=== PATIENT | female | born 2000 | race Caucasian/White ===

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

== ENCOUNTER 2020-04-07 20:54 | Emergency (ER) | payer BC ==
--- NOTE | 2020-04-07 21:06 | EDM.PDOC ---
ED HPI GENERAL MEDICAL PROBLEM - General Chief Complaint: General Stated Complaint: MEDICAL CLEARANCE Time Seen by Provider: 04/07/20 21:06 Source of Information: Reports: Patient History Limitations: Reports: No Limitations - History of Present Illness INITIAL COMMENTS - FREE TEXT/NARRATIVE: HISTORY AND PHYSICAL: History of present illness: Patient is a 20-year-old female who presents to the emergency room with law enforcement for medical clearance exam. Patient states on 04/04/2020 she tested positive for COVID-19 in [place]. Law enforcement would like her evaluated due to her statement of COVID-19. She states she has a mild headache, has had for the past 4 to 5 days. Does not describe this as the worst headache of her life. She denies any fever, chills, neck pain/stiffness, change in vision, syncope or near syncope. Denies any chest pain, back pain, shortness of breath or cough. Denies any abdominal pain, nausea, vomiting, diarrhea, constipation or dysuria. Has not noted any blood in urine or stool. Patient has been eating and drinking appropriately. Review of systems: As per history of present illness and below otherwise all systems reviewed and negative. Past medical history: As per history of present illness and as reviewed below otherwise noncontributory. Surgical history: As per history of present illness and as reviewed below otherwise noncontributory. Social history: See social history for further information Family history: As per history of present illness and as reviewed below otherwise noncontributory. Physical exam: General: Well developed and well nourished 20 year old female. Alert and orientated x 3. Nontoxic in appearance and in no acute distress. Vital signs are stable and have been reviewed by me. Nursing notes were reviewed. Accompanied by law enforcement. HEENT: Atraumatic, normocephalic, pupils equal and reactive bilaterally, negative for conjunctival pallor or scleral icterus, mucous membranes moist, trachea midline. No drooling or trismus noted. No meningeal signs. No hot potato voice noted. Lungs: Clear to auscultation, breath sounds equal bilaterally, chest nontender. Normal work of breathing, no accessory muscles used. Heart: S1S2, regular rate and rhythm without overt murmur Abdomen: Soft, nondistended, nontender. Skin: Intact, warm, dry. No lesions or rashes noted. Hematologic: No petechiae or purpra. Mucosa appropriate color and normal nail bed color and refill. Extremities: Atraumatic, moves all extremities per self without difficulty or deficits, negative for cords or calf pain. Neurovascular unremarkable. Neuro: Awake, alert, oriented. Cranial nerves II through XII unremarkable. Cerebellum unremarkable. Motor and sensory unremarkable throughout. Exam nonfocal. Psychiatric: Mood and affect are appropriate. Normal thought process. Answering questions appropriately. Notes: The patient does have confirmation that she tested positive for COVID-19 on her phone through a state confirmation email. Her significant other who lives with her and is also being evaluated in the emergency room was swabbed here as he did not have the confirmation email, he tested positive. I will avoid duplicate testing and have long enforcement treat her as positive COVID-19. Exam and vital signs are within normal limits. I have talked with the patient about today's findings, in addition to providing specific details for plan of care. The patient is stable for discharge, counseling was provided and we discussed in great detail signs and symptoms that would prompt them to return to the Emergency Department. Medication, follow up and supportive care measures were reviewed and discussed. Voices understanding and is agreeable to plan of care. Denies any further questions or concerns at this time. Diagnostics: None Therapeutics: None Prescription: None Impression: COVID-19 Plan: 1. Your COVID-19 screening is positive. That means you do have the coronavirus and you are considered contagious. Your vital signs and oxygen saturation are well enough that you were able to monitor your symptoms at home. Continue to monitor for trouble breathing, new confusion or inability to arouse, bluish lips or face or any of the other symptoms we discussed -if this occurs please return to the emergency room. 2. Please self quarantine over the next 10 days. Inform any persons that you have been in contact with since you started becoming symptomatic that you have tested positive; they should be made aware and take the appropriate steps as needed. 3. You can take NyQuil during the evening to help get a restful night sleep. May alternate Tylenol and ibuprofen as needed for pain and fever management. 4. The [facility] department will be calling you and following up with you. The [place] COVID 19 Hotline phone number , They are open Saturday - Saturday 7am - 7pm. Follow up with your primary care provider for re-evaluation and re-testing after the 10 day quarantine and discuss when you should be seen. Definitive disposition and diagnosis as appropriate pending reevaluation and review of above. Chest Pain Score (Numeric/FACES): 5 - Related Data Allergies Allergy/AdvReac Type Severity Reaction Status Date / Time No Known Allergies Allergy Verified 04/07/20 21:09 Home Meds: Home Meds . [No Known Home Meds] 04/07/20 [History] Past Medical History - Past Health History Medical/Surgical History: Denies Medical/Surgical History HEENT History: Reports: None Cardiovascular History: Reports: None Respiratory History: Reports: None Gastrointestinal History: Reports: None Genitourinary History: Reports: None [employer] History: Reports: Musculoskeletal History: Reports: None Neurological History: Reports: None Psychiatric History: Reports: None Endocrine/Metabolic History: Reports: None Hematologic History: Reports: None Immunologic History: Reports: None Oncologic (Cancer) History: Reports: None Dermatologic History: Reports: None - Infectious Disease History Infectious Disease History: Reports: None - Past Surgical History Head Surgeries/Procedures: Reports: None HEENT Surgical History: Reports: None Cardiovascular Surgical History: Reports: None Respiratory Surgical History: Reports: None GI Surgical History: Reports: None Female Surgical History: Reports: None Male Surgical History: Reports: None Endocrine Surgical History: Reports: None Neurological Surgical History: Reports: None Musculoskeletal Surgical History: Reports: None Oncologic Surgical History: Reports: None Dermatological Surgical History: Reports: None - Past Imaging History Past Imaging History: Reports: None Social & Family History - Family History Family Medical History: No Pertinent Family History ED ROS GENERAL - Review of Systems Review Of Systems: Comprehensive ROS is negative, except as noted in HPI. ED EXAM, GENERAL - Physical Exam Exam: See Below (See dictation) Course - Vital Signs Last Recorded V/S: Last Vital Signs Temp 97.1 F 04/07/20 21:05 Pulse 85 04/07/20 21:05 Resp 16 04/07/20 21:05 BP 129/72 04/07/20 21:05 Pulse Ox 99 04/07/20 21:05 Departure - Departure Time of Disposition: 21:14 Disposition: Home, Self-Care 01 Clinical Impression: Encounter for medical screening examination, COVID-19 - Discharge Information Instructions: COVID-19 Frequently Asked Questions Referrals: Cain Banuelos MD [Primary Care Provider] - Forms: ED Department Discharge Additional Instructions: The following information is given to patients seen in the emergency department who are being discharged to home. This information is to outline your options for follow-up care. We provide all patients seen in our emergency department with a follow-up referral. The need for follow-up, as well as the timing and circumstances, are variable depending upon the specifics of your emergency department visit. If you don't have a primary care physician on staff, we will provide you with a referral. We always advise you to contact your personal physician following an emergency department visit to inform them of the circumstance of the visit and for follow-up with them and/or the need for any referrals to a consulting specialist. The emergency department will also refer you to a specialist when appropriate. This referral assures that you have the opportunity for follow-up care with a specialist. All of these measure are taken in an effort to provide you with optimal care, which includes your follow-up. Under all circumstances we always encourage you to contact your private physician who remains a resource for coordinating your care. When calling for follow-up care, please make the office aware that this follow-up is from your recent emergency room visit. If for any reason you are refused follow-up, please contact the [facility] Emergency Department at and asked to speak to the emergency department charge nurse. [facility] [address] [place] [id number] [address] [address] for choosing the [facility] emergency department in [place] for your medical needs today. It was a pleasure caring for you. Today you were seen in the emergency department for encounter for medical screening and COVID-19 testing. 1. Your COVID-19 is considered contagious. Your vital signs and oxygen saturation are well enough that you were able to monitor your symptoms at home. Continue to monitor for trouble breathing, new confusion or inability to arouse, bluish lips or face or any of the other symptoms we discussed -if this occurs please return to the emergency room. 2. Please self quarantine over the next 10 days. Inform any persons that you have been in contact with since you started becoming symptomatic that you have tested positive; they should be made aware and take the appropriate steps as needed. 3. You can take NyQuil during the evening to help get a restful night sleep. May alternate Tylenol and ibuprofen as needed for pain and fever management. 4. The [facility] department will be calling you and following up with you. The [place] Hotline phone number , They are open Saturday - Saturday 7am - 7pm. Follow up with your primary care provider for re-evaluation and re-testing after the 10 day quarantine and discuss when you should be seen. Sepsis Event Note (ED) - Focused Exam Vital Signs: Vital Signs Temp Pulse Resp BP Pulse Ox 04/07/20 21:05 97.1 F 85 16 129/72 99
== END 2020-04-07 21:35 | disposition home or self-care (01) ==
LOC: MW.ED 20:54
DX: U07.1 COVID-19 (principal)
CPT/HCPCS: 99282; 99283

== ENCOUNTER 2021-02-14 05:16 | Inpatient (IN) | payer BC ==
[2021-02-14] MEDS ORDERED: Sodium Chloride 0.9% 10 ML SDV IV PRN (05:27)
[2021-02-14] MEDS ORDERED: Citric Acid/Sodium Citrate Solution 30 ML Cup PO ONE (05:27)
[2021-02-14] MEDS ORDERED: Sodium Chloride 0.9% 10 ML Syringe FLUSH PRN (05:27)
[2021-02-14] MEDS ORDERED: Sodium Chloride 0.9% 2.5 ML Syringe FLUSH PRN (05:27)
[2021-02-14] MEDS ORDERED: Oxytocin/0.9 % Sodium Chloride 30 UNIT/500 ML BAG IV SCH (05:30)
[2021-02-14] MEDS: Lactated Ringers 1,000 ML IV SCH ×5 (06:00→18:42)
--- NOTE | 2021-02-14 07:43 | PCM.PREANE ---
Preanesthetic Assessment - Anesthesia/Transfusion/Family Hx Anesthesia History: Prior Anesthesia Without Reaction Family History of Anesthesia Reaction: No Transfusion History: No Prior Transfusion(s) - Review of Systems General: No Symptoms Pulmonary: No Symptoms Cardiovascular: No Symptoms Gastrointestinal: No Symptoms Neurological: No Symptoms Other: Reports: None (Pt denies pathology to all questions. ) - Physical Assessment NPO Status Date: 02/14/21 NPO Status Time: 00:00 Height: 1.6 m Weight: 85.729 kg ASA Class: 2 Mental Status: Alert & Oriented x3 Airway Class: Mallampati = 2 Dentition: Reports: Normal Dentition Thyro-Mental Finger Breadths: 3 Mouth Opening Finger Breadths: 3 ROM/Head Extension: Full Lungs: Clear to Auscultation, Normal Respiratory Effort Cardiovascular: Regular Rate, Regular Rhythm - Lab Values: Laboratory Last Values WBC 7.98 K/uL (4.0-11.0) 02/14/21 06:00 RBC 4.40 M/uL (4.30-5.90) 02/14/21 06:00 Hgb 13.1 g/dL (12.0-16.0) 02/14/21 06:00 Hct 38.2 % (36.0-46.0) 02/14/21 06:00 MCV 86.8 fL (80.0-98.0) 02/14/21 06:00 MCH 29.8 pg (27.0-32.0) 02/14/21 06:00 MCHC 34.3 g/dL (31.0-37.0) 02/14/21 06:00 RDW Std Deviation 38.1 fl (28.0-62.0) 02/14/21 06:00 RDW Coeff of Bon[place] 12 % (11.0-15.0) 02/14/21 06:00 Plt Count 183 K/uL (150-400) 02/14/21 06:00 MPV 11.40 fL (7.40-12.00) 02/14/21 06:00 Blood Type O POSITIVE 02/14/21 06:00 Antibody Screen NEGATIVE 02/14/21 06:00 - Allergies Allergies/Adverse Reactions: Allergies Allergy/AdvReac Type Severity Reaction Status Date / Time No Known Allergies Allergy Verified 02/09/21 08:07 - Blood Blood Available: Yes Product(s) Available: PRBC (Type and screen) - Anesthesia Plan Pre-Op Medication Ordered: None - Acknowledgements Anesthesia Type Planned: Spinal (with GETA backup) Pt an Appropriate Candidate for the Planned Anesthesia: Yes Alternatives and Risks of Anesthesia Discussed w Pt/Guardian: Yes Pt/Guardian Understands and Agrees with Anesthesia Plan: Yes PreAnesthesia Questionnaire - Past Health History Medical/Surgical History: Denies Medical/Surgical History HEENT History: Reports: None Cardiovascular History: Reports: None Respiratory History: Reports: None Gastrointestinal History: Reports: None Genitourinary History: Reports: None [employer]ENCE History: Reports: Musculoskeletal History: Reports: None Neurological History: Reports: None Psychiatric History: Reports: None Endocrine/Metabolic History: Reports: None Hematologic History: Reports: None Immunologic History: Reports: None Oncologic (Cancer) History: Reports: None Dermatologic History: Reports: None - Infectious Disease History Infectious Disease History: Reports: Chicken Pox, Novel Coronavirus - Past Surgical History Head Surgeries/Procedures: Reports: None HEENT Surgical History: Reports: None Cardiovascular Surgical History: Reports: None Respiratory Surgical History: Reports: None GI Surgical History: Reports: None Female Surgical History: Reports: None Endocrine Surgical History: Reports: None Neurological Surgical History: Reports: None Musculoskeletal Surgical History: Reports: None Oncologic Surgical History: Reports: None Dermatological Surgical History: Reports: None - Past Imaging History Past Imaging History: Reports: None - SUBSTANCE USE Tobacco Use Status *Q: Never Tobacco User - HOME MEDS Home Medications: Home Meds Pnv No.95/Ferrous Fum/Folic AC [ Vitamin Tablet] 1 tab PO DAILY 02/09/21 [History] cephALEXin [Keflex] 1 tab PO BID 02/09/21 [History] - CURRENT (IN HOUSE) MEDS Current Meds: Current Medications Oxytocin/Sodium Chloride (Oxytocin 30 Unit In Ns 0.9% 500 Ml Premix) 30 unit in 500 mls @ 250 mls/hr IV TITRATE SAUL Lactated Ringer's (Ringers, Lactated) 1,000 mls @ 500 mls/hr IV BOLUS SAUL Last Admin: 02/14/21 06:38 Dose: 999 mls/hr Documented by: Sodium Chloride (Sodium Chloride 0.9% 10 Ml Syringe) 10 ml FLUSH ASDIRECTED PRN PRN Reason: Keep Vein Open Sodium Chloride (Sodium Chloride 0.9% 2.5 Ml Syringe) 2.5 ml FLUSH ASDIRECTED PRN PRN Reason: Keep Vein Open Sodium Chloride (Sodium Chloride 0.9% 10 Ml Sdv) 10 ml IV ASDIRECTED PRN PRN Reason: IV Use Discontinued Medications Citric Acid/Sodium Citrate (Citric Acid/Sodium Citrate Solution 30 Ml Cup) 30 ml PO ONETIME ONE Stop: 02/14/21 05:28
[2021-02-14] MEDS ORDERED: Morphine PF 10 MG/10 ML SDV ONE (08:03)
[2021-02-14] MEDS ORDERED: Glycopyrrolate 0.2 MG/ML SDV ONE (09:37)
[2021-02-14] MEDS ORDERED: ePHEDrine 50 MG/ML SDV ONE (09:37)
[2021-02-14] MEDS ORDERED: Ondansetron 4 MG/2 ML SDV ONE (09:37)
[2021-02-14] MEDS ORDERED: Oxytocin 10 Units/1 ML SDV ONE (09:37)
[2021-02-14] MEDS ORDERED: Ketorolac 30 MG/ML SDV ONE (09:39)
[2021-02-14] MEDS ORDERED: Misoprostol 200 MCG Tab RECTAL PRN (09:48)
[2021-02-14] MEDS ORDERED: Acetaminophen/oxyCODONE 325-5 MG Tab PO PRN ×2 (09:48)
[2021-02-14] MEDS ORDERED: diphenhydrAMINE 50 MG/ML SDV IVPUSH PRN (09:48)
[2021-02-14] MEDS ORDERED: Ondansetron 4 MG/2 ML SDV IVPUSH PRN (09:48)
[2021-02-14] MEDS ORDERED: Oxytocin 10 Units/1 ML SDV IM PRN (09:48)
[2021-02-14] MEDS ORDERED: Tranexamic Acid 1,000 MG in Sodium Chloride 0.9% 100 ML IV PRN (09:48)
[2021-02-14] MEDS ORDERED: Bisacodyl 10 MG Supp RECTAL PRN (09:48)
[2021-02-14] MEDS ORDERED: Methylergonovine 0.2 MG/1 ML Amp IM PRN (09:48)
[2021-02-14] MEDS ORDERED: Lanolin 100% Cream 7 GM Tube TOP PRN (09:48)
--- NOTE | 2021-02-14 10:07 | PCM.POSTAN ---
POST ANESTHESIA ASSESSMENT - MENTAL STATUS Mental Status: Alert, Oriented - RESPIRATORY Respiratory Status: Respiratory Rate WNL, Airway Patent, O2 Saturation Stable - CARDIOVASCULAR CV Status: Pulse Rate WNL, Blood Pressure Stable - GASTROINTESTINAL GI Status: No Symptoms - POST OP HYDRATION Hydration Status: Adequate & Stable
--- NOTE | 2021-02-14 10:07 | PCM48HPAN ---
Post Anesthesia Note - EVALUATION WITHIN 48HRS OF ANESTHETIC Vital Signs in Normal Range: Yes Patient Participated in Evaluation: Yes Respiratory Function Stable: Yes Airway Patent: Yes Cardiovascular Function Stable: Yes Hydration Status Stable: Yes Pain Control Satisfactory: Yes Nausea and Vomiting Control Satisfactory: Yes Mental Status Recovered: Yes - COMMENTS/OBSERVATIONS Free Text/Narrative:: VSS and patient denies pain.
[2021-02-14] MEDS: Ketorolac 30 MG/ML SDV IVPUSH SCH ×3 (11:01→22:01)
[2021-02-14] MEDS ORDERED: Famotidine 20 MG/2 ML SDV IVPUSH ONE (11:03)
[2021-02-14] MEDS ORDERED: Dexamethasone 4 MG/ML SDV IVPUSH ONE (11:19)
[2021-02-14] MEDS ORDERED: Metoclopramide 10 MG/2 ML SDV IVPUSH ONE (11:21)
[2021-02-14] MEDS ORDERED: Acetaminophen 1,000 MG in Premix Bag 1 BAG IV ONE (14:30)
[2021-02-14] MEDS ORDERED: Scopolamine 1.5 MG Transdermal Patch TRDERM PRN (15:25)
[2021-02-14] MEDS ORDERED: Docusate Sodium 100 MG Cap PO SCH (21:00)
--- NOTE | 2021-02-15 02:24 | OR ---
SURGEON: Williams Kerns MD DATE OF PROCEDURE: 02/14/2021 INDICATION FOR PROCEDURE: A 20-year-old, G2, P1-0-0-1, at 39 weeks and 1 day, presenting for a scheduled repeat . The patient has a history of 1 prior due to arrest of descent. She was counseled regarding the risks and benefits of trial of labor after section and she declined, desiring to proceed with repeat C- section. She had otherwise uncomplicated . GBS was negative. PREOPERATIVE DIAGNOSES: 1. Escobar intrauterine at 39 weeks and 1 day. 2. Previous section. POSTOPERATIVE DIAGNOSES: 1. Escobar intrauterine at 39 weeks and 1 day. 2. Previous section. PROCEDURE PERFORMED: Repeat low-transverse section. RESIDENTIAL CARE FACILITY MANAGER: ANDREAS Mullen ANESTHESIA: Spinal. FINDINGS: Normal-appearing uterus. Small amount of intraperitoneal adhesions. Male fetus, score of 8 and 9. weight 3410g. Nuchal cord x1. ESTIMATED BLOOD LOSS: 800 mL. DESCRIPTION OF PROCEDURE: The procedure was discussed with the patient. The risks include bleeding, infection, DVTs, injury to surrounding organs including bladder, bowel, ureter. The patient expressed understanding. Consent was signed. The patient was brought to the operating room. Spinal anesthesia was performed. Rogel catheter was placed. The abdomen was prepped with chlorhexidine in sterile fashion and draped and tested for analgesia. Spinal with adequate. A Pfannenstiel incision was made at the site of the previous scar with a scalpel and dissected down to fascia. Sites of bleeding were cauterized. The fascia was cleared of subcutaneous tissue, then incised in the midline with the scalpel. It was extended bilaterally with curved Sanchez scissors. Neptali clamps were placed on the superior fascial edge. The rectus muscles were by blunt dissection and using Sanchez scissors. The same process was repeated for the inferior fascial edge. The rectus muscles were at the midline, then stretched bluntly. There were some adhesions from the prior surgery below the rectus muscle, which was carefully palpated and from the rectus muscles, then the peritoneum was entered. It was then stretched bluntly. The Dalton-O retractor was placed in the peritoneal cavity. The bladder was noted to be away from the lower uterine segment. The uterus was incised transversely at the lower uterine segment and extended bluntly. Clear amniotic fluid was noted. The 's head was brought to the hysterotomy and delivered atraumatically with fundal pressure. The shoulder and body were delivered without difficulty. There was a nuchal cord that was reduced after delivery. The nose and mouth were suctioned. The baby was pink, crying immediately after delivery. The umbilical cord was clamped and cut after about 60 seconds and no longer pulsating. The baby was handed over to nursery staff. The cord blood was obtained. Placenta was delivered with gentle traction on the umbilical cord. It was examined and noted to be intact with 3-vessel cord. The endometrial cavity was wiped with a clean lap to remove all remaining membranes. Allis clamps were used to grasp the angles of the incision. The uterine incision was closed in 2 layers, the 1st layer with 0 Monocryl in running locking fashion. The 2nd layer vertically imbricated using 0 Vicryl. There was small amount of bleeding near the midline, and a [id number] was placed with good hemostasis. Cautery was also used on small bleeding edges. The pericolic gutters were cleared of any clots. Irrigation was performed and the incision was checked again for hemostasis. The Dalton-O retractor was then removed from the peritoneal cavity. The peritoneum was grasped by hemostats and reapproximated in the midline using 2-0 Vicryl in a running fashion. The rectus muscles were also brought together with a mattress stitch. The rectus muscles were carefully examined and some areas had a small amount of bleeding, and cautery was used for hemostasis. The fascia was then closed using 0-Vicryl suture in running fashion. The subcutaneous tissue was irrigated and bleeding areas cauterized. The subcutaneous layer was closed with 2-0 plain suture in running fashion. The skin was closed in subcuticular fashion using 3-0 Monocryl on a Amauri needle. Telfa and ABD dressings were placed over the incision. The patient did well during the procedure and was transferred to recovery room. JORGE FERRER /[id number]
[2021-02-15] MEDS: Ketorolac 30 MG/ML SDV IVPUSH SCH ×3 (03:46→21:27)
[2021-02-15] MEDS ORDERED: Lactated Ringers 500 ML IV SCH ×2 (05:30→06:15)
[2021-02-15] MEDS ORDERED: Misoprostol 200 MCG Tab RECTAL PRN (07:10)
[2021-02-15] MEDS ORDERED: Oxytocin 10 Units/1 ML SDV IM PRN (07:10)
[2021-02-15] MEDS ORDERED: Ondansetron 4 MG/2 ML SDV IVPUSH PRN (07:10)
[2021-02-15] MEDS ORDERED: Tranexamic Acid 1,000 MG in Sodium Chloride 0.9% 100 ML IV PRN (07:10)
[2021-02-15] MEDS ORDERED: Methylergonovine 0.2 MG/1 ML Amp IM PRN (07:10)
[2021-02-15] MEDS ORDERED: Lanolin 100% Cream 7 GM Tube TOP PRN (07:10)
[2021-02-15] MEDS ORDERED: diphenhydrAMINE 50 MG/ML SDV IVPUSH PRN (07:10)
[2021-02-15] MEDS ORDERED: Bisacodyl 10 MG Supp RECTAL PRN (07:10)
[2021-02-15] MEDS ORDERED: Acetaminophen/oxyCODONE 325-5 MG Tab PO PRN (07:10)
[2021-02-15] MEDS ORDERED: Lactated Ringers 1,000 ML IV SCH (07:15)
--- NOTE | 2021-02-15 07:32 | PCM.PNPP ---
- General Info Date of Service: 02/15/21 Functional Status: Reports: Pain Controlled, Tolerating Diet, Other (BP 80s/40s last night, denies feeling dizzy. Improved this AM after IV fluid bolus. Will try ambulation this morning. Rogel removed this AM. Bleeding light.) - Review of Systems General: Reports: No Symptoms HEENT: Reports: No Symptoms Pulmonary: Reports: No Symptoms Cardiovascular: Reports: No Symptoms Gastrointestinal: Reports: No Symptoms Genitourinary: Reports: No Symptoms Musculoskeletal: Reports: No Symptoms Skin: Reports: No Symptoms Neurological: Reports: No Symptoms Psychiatric: Reports: No Symptoms - Patient Data Vital Signs - Most Recent: Last Vital Signs Temp 36.1 C 02/15/21 04:00 Pulse 70 02/15/21 06:00 Resp 15 02/15/21 05:00 BP 88/34 L 02/15/21 06:00 Pulse Ox 96 02/15/21 05:00 Weight - Most Recent: 189 lb I&O - Last 24 Hours: Intake & Output 02/14/21 02/15/21 02/15/21 22:59 06:59 14:59 Intake Total 2915 Output Total 450 Balance -450 2915 Lab Results - Last 24 Hours: Laboratory Results - last 24 hr 02/14/21 02/15/21 Range/Units 15:40 04:25 Hgb 8.8 L (12.0-16.0) g/dL Hct 26.0 L (36.0-46.0) % POC Glucose 109 H (70-99) mg/dL Med Orders - Current: Current Medications Bisacodyl (Bisacodyl 10 Mg Supp) 10 mg RECTAL ONETIME PRN PRN Reason: Constipation Diphenhydramine HCl (Diphenhydramine 50 Mg/Ml Sdv) 25 mg IVPUSH Q6H PRN PRN Reason: Itching or Nausea Docusate Sodium (Docusate Sodium 100 Mg Cap) 100 mg PO BID SAUL Emollient Ointment (Lanolin 100% Cream 7 Gm Tube) 0 gm TOP ASDIRECTED PRN PRN Reason: Sore Nipples Lactated Ringer's (Ringers, Lactated) 500 mls @ 999 mls/hr IV .BOLUS [facility] Last Infusion: 02/15/21 05:36 Dose: Infused Documented by: Lactated Ringer's (Ringers, Lactated) 500 mls @ 999 mls/hr IV .BOLUS [facility] Last Infusion: 02/15/21 06:36 Dose: Infused Documented by: Lactated Ringer's (Ringers, Lactated) 1,000 mls @ 125 mls/hr IV ASDIRECTED SAUL Tranexamic Acid 1,000 mg/ (Sodium Chloride) 110 mls @ 660 mls/hr IV ONETIME PRN PRN Reason: Bleeding Ibuprofen (Ibuprofen 800 Mg Tab) 800 mg PO Q8H PRN PRN Reason: Cramping Influenza Virus Vaccine (Flu Vacc [id number](6mos Up)/Pf 60 Mcg/0.5 Ml Syringe) 60 mcg IM .ONCE ONE Stop: 02/17/21 08:01 Ketorolac Tromethamine (Ketorolac 30 Mg/Ml Sdv) 30 mg IVPUSH Q6H [facility] Stop: 02/16/21 10:01 Methylergonovine Maleate (Methylergonovine 0.2 Mg/1 Ml Amp) 0.2 mg IM ONETIME PRN PRN Reason: Excessive Vaginal Bleeding Misoprostol (Misoprostol 200 Mcg Tab) 1,000 mcg RECTAL ONETIME PRN PRN Reason: excessive bleeding Ondansetron HCl (Ondansetron 4 Mg/2 Ml Sdv) 4 mg IVPUSH Q4H PRN PRN Reason: Nausea/Vomiting Oxycodone/Acetaminophen (Acetaminophen/Oxycodone 325-5 Mg Tab) 1 tab PO Q4H PRN PRN Reason: Pain (severe 7-10) Oxycodone/Acetaminophen (Acetaminophen/Oxycodone 325-5 Mg Tab) 2 tab PO Q4H PRN PRN Reason: Pain (severe 7-10) Oxytocin (Oxytocin 10 Units/1 Ml Sdv) 10 unit IM ASDIRECTED PRN PRN Reason: Excessive Vaginal Bleeding Scopolamine (Scopolamine 1.5 Mg Transdermal Patch) 1.5 mg TRDERM Q72H PRN PRN Reason: Nausea/Vomiting Last Admin: 02/14/21 16:31 Dose: 1.5 mg Documented by: Sodium Chloride (Sodium Chloride 0.9% 10 Ml Syringe) 10 ml FLUSH ASDIRECTED PRN PRN Reason: Keep Vein Open Sodium Chloride (Sodium Chloride 0.9% 2.5 Ml Syringe) 2.5 ml FLUSH ASDIRECTED PRN PRN Reason: Keep Vein Open Sodium Chloride (Sodium Chloride 0.9% 10 Ml Sdv) 10 ml IV ASDIRECTED PRN PRN Reason: IV Use Discontinued Medications Bisacodyl (Bisacodyl 10 Mg Supp) 10 mg RECTAL ONETIME PRN PRN Reason: Constipation Citric Acid/Sodium Citrate (Citric Acid/Sodium Citrate Solution 30 Ml Cup) 30 ml PO ONETIME ONE Stop: 02/14/21 05:28 Last Admin: 02/15/21 00:03 Dose: Not Given Documented by: Dexamethasone (Dexamethasone 4 Mg/Ml Sdv) 4 mg IVPUSH ONETIME ONE Stop: 02/14/21 11:20 Last Admin: 02/14/21 12:00 Dose: 4 mg Documented by: Diphenhydramine HCl (Diphenhydramine 50 Mg/Ml Sdv) 25 mg IVPUSH Q6H PRN PRN Reason: Itching or Nausea Docusate Sodium (Docusate Sodium 100 Mg Cap) 100 mg PO BID [facility] Last Admin: 02/14/21 20:06 Dose: 100 mg Documented by: Emollient Ointment (Lanolin 100% Cream 7 Gm Tube) 0 gm TOP ASDIRECTED PRN PRN Reason: Sore Nipples Ephedrine Sulfate (Ephedrine 50 Mg/Ml Sdv) Confirm Administered Dose 50 mg .ROUTE .STK-MED ONE Stop: 02/14/21 09:38 Famotidine (Famotidine 20 Mg/2 Ml Sdv) 20 mg IVPUSH ONETIME ONE Stop: 02/14/21 11:04 Last Admin: 02/14/21 12:05 Dose: 20 mg Documented by: Glycopyrrolate (Glycopyrrolate 0.2 Mg/Ml Sdv) Confirm Administered Dose 0.4 mg .ROUTE .STK-MED ONE Stop: 02/14/21 09:38 Oxytocin/Sodium Chloride (Oxytocin 30 Unit In Ns 0.9% 500 Ml Premix) 30 unit in 500 mls @ 250 mls/hr IV TITRATE [facility] Lactated Ringer's (Ringers, Lactated) 1,000 mls @ 500 mls/hr IV BOLUS [facility] Last Admin: 02/14/21 08:05 Dose: 999 mls/hr Documented by: Acetaminophen (Ofirmev 1000 Mg/100 Ml) Confirm Administered Dose 100 mls @ as directed .ROUTE .STK-MED ONE Stop: 02/14/21 09:38 Cefazolin Sodium/Dextrose (Ancef 2 Gm/50 Ml) Confirm Administered Dose 50 mls @ as directed .ROUTE .STK-MED ONE Stop: 02/14/21 09:38 Lactated Ringer's (Ringers, Lactated) 1,000 mls @ 125 mls/hr IV ASDIRECTED [facility] Last Infusion: 02/15/21 01:47 Dose: 125 mls/hr Documented by: Tranexamic Acid 1,000 mg/ (Sodium Chloride) 110 mls @ 660 mls/hr IV ONETIME PRN PRN Reason: Bleeding Acetaminophen 1,000 mg/ Premix 100 mls @ 400 mls/hr IV NOW ONE Stop: 02/14/21 14:44 Last Admin: 02/14/21 15:02 Dose: 400 mls/hr Documented by: Ibuprofen (Ibuprofen 800 Mg Tab) 800 mg PO Q8H PRN PRN Reason: Cramping Influenza Virus Vaccine (Pharmacy To Dose - Influenza Vaccine) 1 each IM ONETIME ONE Stop: 02/14/21 07:43 Ketorolac Tromethamine (Ketorolac 30 Mg/Ml Sdv) Confirm Administered Dose 30 mg .ROUTE .STK-MED ONE Stop: 02/14/21 09:40 Ketorolac Tromethamine (Ketorolac 30 Mg/Ml Sdv) 30 mg IVPUSH Q6H [facility] Stop: 02/15/21 10:01 Last Admin: 02/15/21 03:46 Dose: 30 mg Documented by: Methylergonovine Maleate (Methylergonovine 0.2 Mg/1 Ml Amp) 0.2 mg IM ONETIME PRN PRN Reason: Excessive Vaginal Bleeding Metoclopramide HCl (Metoclopramide 10 Mg/2 Ml Sdv) 10 mg IVPUSH ONETIME ONE Stop: 02/14/21 11:22 Last Admin: 02/14/21 21:14 Dose: Not Given Documented by: Miscellaneous Medication (Phenylephrine Hcl In 0.9% Nacl 1 Mg/10 Ml Syringe) Confirm Administered Dose 1 mg .ROUTE .STK-MED ONE Stop: 02/14/21 09:38 Misoprostol (Misoprostol 200 Mcg Tab) 1,000 mcg RECTAL ONETIME PRN PRN Reason: excessive bleeding Morphine Sulfate (Morphine Pf 10 Mg/10 Ml Sdv) Confirm Administered Dose 10 mg .ROUTE .STK-MED ONE Stop: 02/14/21 08:04 Ondansetron HCl (Ondansetron 4 Mg/2 Ml Sdv) Confirm Administered Dose 4 mg .ROUTE .STK-MED ONE Stop: 02/14/21 09:38 Ondansetron HCl (Ondansetron 4 Mg/2 Ml Sdv) 4 mg IVPUSH Q4H PRN PRN Reason: Nausea/Vomiting Last Admin: 02/14/21 10:53 Dose: 4 mg Documented by: Oxycodone/Acetaminophen (Acetaminophen/Oxycodone 325-5 Mg Tab) 1 tab PO Q4H PRN PRN Reason: Pain (severe 7-10) Oxycodone/Acetaminophen (Acetaminophen/Oxycodone 325-5 Mg Tab) 2 tab PO Q4H PRN PRN Reason: Pain (severe 7-10) Last Admin: 02/15/21 00:19 Dose: 2 tab Documented by: Oxytocin (Oxytocin 10 Units/1 Ml Sdv) Confirm Administered Dose 30 unit .ROUTE .STK-MED ONE Stop: 02/14/21 09:38 Oxytocin (Oxytocin 10 Units/1 Ml Sdv) 10 unit IM ASDIRECTED PRN PRN Reason: Excessive Vaginal Bleeding - Infant Interaction Disposition, : [place] at Bedside Support Person: - Recovery Exam Fundal Tone: Firm Fundal Level: 3 Fingerbreadths Below Umbilicus Fundal Placement: Midline Lochia Amount: Scant Lochia Color: Rubra/Red Perineum Description: Intact, Minimal Bruising/Swelling Episiotomy/Laceration: None Bladder Status: Indwelling Catheter in Place Urinary Elimination: Other (see below) Other Urinary Elimination, : Due to void. - Exam General: Alert, Oriented, Cooperative, No Acute Distress HEENT: Pupils Equal, Pupils Reactive, EOMI Neck: Supple, Trachea Midline, No JVD Lungs: Normal Respiratory Effort GI/Abdominal Exam: Soft, Non-Tender, No Distention Extremities: Normal Inspection, Normal Range of Motion, Non-Tender, No Pedal Edema Skin: Warm, Dry, Intact Wound/Incisions: Dressing Dry and Intact Neurological: No New Focal Deficit Psy/Mental Status: Alert, Normal Affect, Normal Mood - Problem List Review Problem List Initiated/Reviewed/Updated: Yes - My Orders Last 24 Hours: My Active Orders 02/14/21 09:48 Antiembolic Devices [RC] PER UNIT ROUTINE Sequential Compression Device [OM.PC] Per Unit Routine 02/14/21 09:50 Patient Status [ADT] Routine 02/15/21 07:10 Ambulate [RC] PER UNIT ROUTINE Communication Order [RC] PER UNIT ROUTINE May Shower [RC] ASDIRECTED RT Incentive Spirometry [RC] Q2HWA Vital Signs [RC] Q4H Acetaminophen/oxyCODONE [Percocet 325-5 MG] 1 tab PO Q4H PRN Acetaminophen/oxyCODONE [Percocet 325-5 MG] 2 tab PO Q4H PRN Lanolin [Lansinoh HPA] See Dose Instructions TOP ASDIRECTED PRN Methylergonovine [Methergine] 0.2 mg IM ONETIME PRN Ondansetron [Zofran] 4 mg IVPUSH Q4H PRN Oxytocin [Pitocin] 10 unit IM ASDIRECTED PRN Tranexamic Acid [Cyklokapron] 1,000 mg Sodium Chloride 0.9% [Normal Saline] 100 ml IV ONETIME bisacodyL [Dulcolax] 10 mg RECTAL ONETIME PRN diphenhydrAMINE [Benadryl] 25 mg IVPUSH Q6H PRN miSOPROStoL [Cytotec] 1,000 mcg RECTAL ONETIME PRN Assess Lochia [WOMSER] Per Unit Routine Assess Uterine Involution [WOMSER] Per Unit Routine Breast Pump [WOMSER] Per Unit Routine Peripheral IV Discontinue [OM.PC] Routine Sequential Compression Device [OM.PC] Per Unit Routine 02/15/21 07:15 Lactated Ringers [Ringers, Lactated] 1,000 ml IV ASDIRECTED 02/15/21 09:00 Docusate Sodium [Colace] 100 mg PO BID 02/15/21 10:00 Ketorolac [Toradol] 30 mg IVPUSH Q6H 02/16/21 05:00 CBC W/O DIFF,HEMOGRAM [HEME] Routine 02/16/21 16:00 Ibuprofen [Motrin] 800 mg PO Q8H PRN 02/17/21 08:00 FLU Vacc [id number](6MOS UP)/PF [Fluzone Quad Syringe] 60 mcg IM .ONCE ONE - Assessment Assessment:: 20yo POD1 s/p repeat LTCS. - Plan Plan:: - low BP last night, improving this AM, normal HR, will monitor closely - Hgb 8.8, bleeding light, will repeat tomorrow - pain controlled - encouraged ambulation Continue inpatient management.
[2021-02-15] MEDS ORDERED: Ibuprofen 800 MG Tab PO PRN ×2 (16:00→18:28)
[2021-02-15] MEDS ORDERED: Ibuprofen 800 MG Tab ONE (18:17)
[2021-02-15] MEDS: Docusate Sodium 100 MG Cap PO SCH ×2 (20:33→21:30)
[2021-02-15] MEDS: Acetaminophen/oxyCODONE 325-5 MG Tab PO PRN (20:34)
[2021-02-16] MEDS: Ketorolac 30 MG/ML SDV IVPUSH SCH ×2 (00:02→07:09)
[2021-02-16] MEDS: Acetaminophen/oxyCODONE 325-5 MG Tab PO PRN (07:16)
--- NOTE | 2021-02-16 09:03 | PCM.PNPP ---
- General Info Date of Service: 02/16/21 Functional Status: Reports: Pain Controlled, Tolerating Diet, Ambulating, Urinating - Review of Systems General: Reports: No Symptoms HEENT: Reports: No Symptoms Pulmonary: Reports: No Symptoms Cardiovascular: Reports: No Symptoms Gastrointestinal: Reports: No Symptoms Genitourinary: Reports: No Symptoms Musculoskeletal: Reports: No Symptoms Skin: Reports: No Symptoms Neurological: Reports: No Symptoms Psychiatric: Reports: No Symptoms - Patient Data Vital Signs - Most Recent: Last Vital Signs Temp 36.2 C 02/16/21 07:41 Pulse 70 02/16/21 07:41 Resp 18 02/16/21 07:41 BP 104/60 02/16/21 07:41 Pulse Ox 99 02/16/21 07:41 Weight - Most Recent: 189 lb Lab Results - Last 24 Hours: Laboratory Results - last 24 hr 02/14/21 02/16/21 Range/Units 06:00 04:50 WBC 7.94 (4.0-11.0) K/uL RBC 2.78 L (4.30-5.90) M/uL Hgb 8.1 L (12.0-16.0) g/dL Hct 24.7 L (36.0-46.0) % MCV 88.8 (80.0-98.0) fL MCH 29.1 (27.0-32.0) pg MCHC 32.8 (31.0-37.0) g/dL RDW Std Deviation 43.8 (28.0-62.0) fl RDW Coeff of Bonny 14 (11.0-15.0) % Plt Count 163 (150-400) K/uL MPV 11.10 (7.40-12.00) fL Nucleated RBC % 0.0 /100WBC Nucleated RBCs # 0 K/uL RPR Non-Reac (Non-Reac) Med Orders - Current: Current Medications Bisacodyl (Bisacodyl 10 Mg Supp) 10 mg RECTAL ONETIME PRN PRN Reason: Constipation Diphenhydramine HCl (Diphenhydramine 50 Mg/Ml Sdv) 25 mg IVPUSH Q6H PRN PRN Reason: Itching or Nausea Docusate Sodium (Docusate Sodium 100 Mg Cap) 100 mg PO BID SAUL Last Admin: 02/15/21 21:30 Dose: Not Given Documented by: Emollient Ointment (Lanolin 100% Cream 7 Gm Tube) 0 gm TOP ASDIRECTED PRN PRN Reason: Sore Nipples Lactated Ringer's (Ringers, Lactated) 500 mls @ 999 mls/hr IV .BOLUS [facility] Last Infusion: 02/15/21 05:36 Dose: Infused Documented by: Lactated Ringer's (Ringers, Lactated) 500 mls @ 999 mls/hr IV .BOLUS [facility] Last Infusion: 02/15/21 06:36 Dose: Infused Documented by: Lactated Ringer's (Ringers, Lactated) 1,000 mls @ 125 mls/hr IV ASDIRECTED SAUL Tranexamic Acid 1,000 mg/ (Sodium Chloride) 110 mls @ 660 mls/hr IV ONETIME PRN PRN Reason: Bleeding Ibuprofen (Ibuprofen 800 Mg Tab) 800 mg PO Q8H PRN PRN Reason: Cramping Last Admin: 02/16/21 00:07 Dose: 800 mg Documented by: Influenza Virus Vaccine (Flu Vacc [id number](6mos Up)/Pf 60 Mcg/0.5 Ml Syringe) 60 mcg IM .ONCE ONE Stop: 02/17/21 08:01 Ketorolac Tromethamine (Ketorolac 30 Mg/Ml Sdv) 30 mg IVPUSH Q6H [facility] Stop: 02/16/21 10:01 Last Admin: 02/16/21 07:09 Dose: Not Given Documented by: Methylergonovine Maleate (Methylergonovine 0.2 Mg/1 Ml Amp) 0.2 mg IM ONETIME PRN PRN Reason: Excessive Vaginal Bleeding Misoprostol (Misoprostol 200 Mcg Tab) 1,000 mcg RECTAL ONETIME PRN PRN Reason: excessive bleeding Ondansetron HCl (Ondansetron 4 Mg/2 Ml Sdv) 4 mg IVPUSH Q4H PRN PRN Reason: Nausea/Vomiting Oxycodone/Acetaminophen (Acetaminophen/Oxycodone 325-5 Mg Tab) 1 tab PO Q4H PRN PRN Reason: Pain (severe 7-10) Oxycodone/Acetaminophen (Acetaminophen/Oxycodone 325-5 Mg Tab) 2 tab PO Q4H PRN PRN Reason: Pain (severe 7-10) Last Admin: 02/16/21 07:16 Dose: 2 tab Documented by: Oxytocin (Oxytocin 10 Units/1 Ml Sdv) 10 unit IM ASDIRECTED PRN PRN Reason: Excessive Vaginal Bleeding Scopolamine (Scopolamine 1.5 Mg Transdermal Patch) 1.5 mg TRDERM Q72H PRN PRN Reason: Nausea/Vomiting Last Admin: 02/14/21 16:31 Dose: 1.5 mg Documented by: Sodium Chloride (Sodium Chloride 0.9% 10 Ml Syringe) 10 ml FLUSH ASDIRECTED PRN PRN Reason: Keep Vein Open Sodium Chloride (Sodium Chloride 0.9% 2.5 Ml Syringe) 2.5 ml FLUSH ASDIRECTED PRN PRN Reason: Keep Vein Open Sodium Chloride (Sodium Chloride 0.9% 10 Ml Sdv) 10 ml IV ASDIRECTED PRN PRN Reason: IV Use Discontinued Medications Bisacodyl (Bisacodyl 10 Mg Supp) 10 mg RECTAL ONETIME PRN PRN Reason: Constipation Citric Acid/Sodium Citrate (Citric Acid/Sodium Citrate Solution 30 Ml Cup) 30 ml PO ONETIME ONE Stop: 02/14/21 05:28 Last Admin: 02/15/21 00:03 Dose: Not Given Documented by: Dexamethasone (Dexamethasone 4 Mg/Ml Sdv) 4 mg IVPUSH ONETIME ONE Stop: 02/14/21 11:20 Last Admin: 02/14/21 12:00 Dose: 4 mg Documented by: Diphenhydramine HCl (Diphenhydramine 50 Mg/Ml Sdv) 25 mg IVPUSH Q6H PRN PRN Reason: Itching or Nausea Docusate Sodium (Docusate Sodium 100 Mg Cap) 100 mg PO BID SAUL Last Admin: 02/14/21 20:06 Dose: 100 mg Documented by: Emollient Ointment (Lanolin 100% Cream 7 Gm Tube) 0 gm TOP ASDIRECTED PRN PRN Reason: Sore Nipples Ephedrine Sulfate (Ephedrine 50 Mg/Ml Sdv) Confirm Administered Dose 50 mg .ROUTE .STK-MED ONE Stop: 02/14/21 09:38 Famotidine (Famotidine 20 Mg/2 Ml Sdv) 20 mg IVPUSH ONETIME ONE Stop: 02/14/21 11:04 Last Admin: 02/14/21 12:05 Dose: 20 mg Documented by: Glycopyrrolate (Glycopyrrolate 0.2 Mg/Ml Sdv) Confirm Administered Dose 0.4 mg .ROUTE .STK-MED ONE Stop: 02/14/21 09:38 Oxytocin/Sodium Chloride (Oxytocin 30 Unit In Ns 0.9% 500 Ml Premix) 30 unit in 500 mls @ 250 mls/hr IV TITRATE SAUL Lactated Ringer's (Ringers, Lactated) 1,000 mls @ 500 mls/hr IV BOLUS [facility] Last Admin: 02/14/21 08:05 Dose: 999 mls/hr Documented by: Acetaminophen (Ofirmev 1000 Mg/100 Ml) Confirm Administered Dose 100 mls @ as directed .ROUTE .STK-MED ONE Stop: 02/14/21 09:38 Cefazolin Sodium/Dextrose (Ancef 2 Gm/50 Ml) Confirm Administered Dose 50 mls @ as directed .ROUTE .STK-MED ONE Stop: 02/14/21 09:38 Lactated Ringer's (Ringers, Lactated) 1,000 mls @ 125 mls/hr IV ASDIRECTED [facility] Last Infusion: 02/15/21 01:47 Dose: 125 mls/hr Documented by: Tranexamic Acid 1,000 mg/ (Sodium Chloride) 110 mls @ 660 mls/hr IV ONETIME PRN PRN Reason: Bleeding Acetaminophen 1,000 mg/ Premix 100 mls @ 400 mls/hr IV NOW ONE Stop: 02/14/21 14:44 Last Admin: 02/14/21 15:02 Dose: 400 mls/hr Documented by: Ibuprofen (Ibuprofen 800 Mg Tab) 800 mg PO Q8H PRN PRN Reason: Cramping Ibuprofen (Ibuprofen 800 Mg Tab) 800 mg PO Q8H PRN PRN Reason: Cramping Last Admin: 02/15/21 18:21 Dose: 800 mg Documented by: Ibuprofen (Ibuprofen 800 Mg Tab) Confirm Administered Dose 800 mg .ROUTE .STK- MED ONE Stop: 02/15/21 18:18 Last Admin: 02/15/21 21:28 Dose: Not Given Documented by: Influenza Virus Vaccine (Pharmacy To Dose - Influenza Vaccine) 1 each IM ONETIME ONE Stop: 02/14/21 07:43 Ketorolac Tromethamine (Ketorolac 30 Mg/Ml Sdv) Confirm Administered Dose 30 mg .ROUTE .STK-MED ONE Stop: 02/14/21 09:40 Ketorolac Tromethamine (Ketorolac 30 Mg/Ml Sdv) 30 mg IVPUSH Q6H SAUL Stop: 02/15/21 10:01 Last Admin: 02/15/21 03:46 Dose: 30 mg Documented by: Methylergonovine Maleate (Methylergonovine 0.2 Mg/1 Ml Amp) 0.2 mg IM ONETIME PRN PRN Reason: Excessive Vaginal Bleeding Metoclopramide HCl (Metoclopramide 10 Mg/2 Ml Sdv) 10 mg IVPUSH ONETIME ONE Stop: 02/14/21 11:22 Last Admin: 02/14/21 21:14 Dose: Not Given Documented by: Miscellaneous Medication (Phenylephrine Hcl In 0.9% Nacl 1 Mg/10 Ml Syringe) Confirm Administered Dose 1 mg .ROUTE .STK-MED ONE Stop: 02/14/21 09:38 Misoprostol (Misoprostol 200 Mcg Tab) 1,000 mcg RECTAL ONETIME PRN PRN Reason: excessive bleeding Morphine Sulfate (Morphine Pf 10 Mg/10 Ml Sdv) Confirm Administered Dose 10 mg .ROUTE .STK-MED ONE Stop: 02/14/21 08:04 Ondansetron HCl (Ondansetron 4 Mg/2 Ml Sdv) Confirm Administered Dose 4 mg .ROUTE .STK-MED ONE Stop: 02/14/21 09:38 Ondansetron HCl (Ondansetron 4 Mg/2 Ml Sdv) 4 mg IVPUSH Q4H PRN PRN Reason: Nausea/Vomiting Last Admin: 02/14/21 10:53 Dose: 4 mg Documented by: Oxycodone/Acetaminophen (Acetaminophen/Oxycodone 325-5 Mg Tab) 1 tab PO Q4H PRN PRN Reason: Pain (severe 7-10) Oxycodone/Acetaminophen (Acetaminophen/Oxycodone 325-5 Mg Tab) 2 tab PO Q4H PRN PRN Reason: Pain (severe 7-10) Last Admin: 02/15/21 00:19 Dose: 2 tab Documented by: Oxytocin (Oxytocin 10 Units/1 Ml Sdv) Confirm Administered Dose 30 unit .ROUTE .STK-MED ONE Stop: 02/14/21 09:38 Oxytocin (Oxytocin 10 Units/1 Ml Sdv) 10 unit IM ASDIRECTED PRN PRN Reason: Excessive Vaginal Bleeding - Interaction Infant Disposition, : [place] at Bedside Infant Interaction: Holding Infant Infant Feeding: Bottle Fed Infant Support Person: - Recovery Exam Fundal Tone: Firm Fundal Level: 3 Fingerbreadths Below Umbilicus Fundal Placement: Midline Lochia Amount: Scant Lochia Color: Rubra/Red Perineum Description: Intact, Minimal Bruising/Swelling Episiotomy/Laceration: None Bladder Status: Voiding Urinary Elimination: Voided Other Urinary Elimination, : Due to void. - Exam General: Alert, Oriented, Cooperative, No Acute Distress HEENT: Pupils Equal, Pupils Reactive Neck: Supple, Trachea Midline, No JVD Lungs: Normal Respiratory Effort GI/Abdominal Exam: Soft, Non-Tender, No Distention Extremities: Normal Inspection, Normal Range of Motion, Non-Tender, No Pedal Edema Skin: Warm, Dry, Intact Wound/Incisions: Healing Well Neurological: No New Focal Deficit Psy/Mental Status: Alert, Normal Affect, Normal Mood - Problem List Review Problem List Initiated/Reviewed/Updated: Yes - My Orders Last 24 Hours: My Active Orders 02/15/21 09:00 Docusate Sodium [Colace] 100 mg PO BID 02/15/21 10:00 Ketorolac [Toradol] 30 mg IVPUSH Q6H 02/15/21 Dinner Regular Diet [DIET] 02/15/21 18:28 Ibuprofen [Motrin] 800 mg PO Q8H PRN 02/16/21 08:58 Ready for Discharge [RC] PER UNIT ROUTINE 02/17/21 08:00 FLU Vacc [id number](6MOS UP)/PF [Fluzone Quad [id number] Syringe] 60 mcg IM .ONCE ONE - Assessment Assessment:: 20yo POD2 s/p repeat LTCS. Stable and recovering well. - Plan Plan:: - vital stable - repeat Hgb 8.4, stable from POD1, bleeding light, will start iron supplements - pain controlled - encouraged ambulation Stable for discharge home today. Reviewed postop care instructions
[2021-02-16] MEDS: Docusate Sodium 100 MG Cap PO SCH (09:40)
[2021-02-16] MEDS ORDERED: Ibuprofen 800 MG Tab PO PRN (16:00)
== END 2021-02-16 12:18 | disposition home or self-care (01) | DRG 540 ==
LOC: MW.OB 05:16
PROVIDERS: ADMIT Obstetrics & Gynecology; ATTEND Obstetrics & Gynecology
PROC: 10D00Z1 Extraction of Products of Conception, Low, Open Approach (ICD-10-PCS; principal; 2021-02-14)
DX: O34.211 Maternal care for low transverse scar from previous cesarean delivery (principal); Z37.0 Single live birth; Z3A.39 39 weeks gestation of pregnancy
CPT/HCPCS: 01961; 36415; 59025; 82947; 85014; 85018; 85027; 86592; 86850; 86900; 86901; A9270-GY; J0131; J0690; J1100; J1885; J2270; J2370; J2405; J2590; J3490; J7120

== ENCOUNTER 2024-10-25 23:18 | Inpatient (IN) | payer BC ==
[2024-10-25] MEDS ORDERED: Morphine PF 10 MG/10 ML SDV ONE (23:44)
[2024-10-25] MEDS ORDERED: Phenylephrine 1% 10 MG/ML SDV ONE (23:44)
[2024-10-25] MEDS ORDERED: fentaNYL 100 MCG/2 ML SDV ONE (23:45)
[2024-10-25] MEDS ORDERED: Sodium Chloride 0.9% 20 ML ONE (23:46)
[2024-10-25] MEDS ORDERED: Ropivacaine 0.5% 5 MG/ML 30 ML SDV ONE (23:46)
[2024-10-25] MEDS ORDERED: Ondansetron 4 MG/2 ML SDV ONE (23:46)
[2024-10-25] MEDS ORDERED: droPERidol 5 MG/2 ML SDV ONE (23:46)
[2024-10-25] MEDS ORDERED: ceFAZolin 2 GM Vial ONE (23:46)
[2024-10-25] MEDS ORDERED: dexmedeTOMIDine HCl 200 MCG/2 ML SDV ONE (23:46)
[2024-10-25] MEDS ORDERED: Oxytocin 10 Units/1 ML SDV ONE (23:46)
[2024-10-25] MEDS ORDERED: Dexamethasone 4 MG/ML 5 ML MDV ONE (23:46)
[2024-10-25] MEDS ORDERED: ePHEDrine 50 MG/ML SDV ONE (23:46)
[2024-10-26] MEDS ORDERED: Sodium Chloride 0.9% 10 ML Syringe FLUSH PRN (00:08)
[2024-10-26] MEDS ORDERED: Sodium Chloride 0.9% 2.5 ML Syringe FLUSH PRN (00:08)
[2024-10-26] MEDS ORDERED: Citric Acid/Sodium Citrate Solution 30 ML Cup PO ONE (00:08)
[2024-10-26] MEDS ORDERED: Sodium Chloride 0.9% 20 ML SDV IV PRN (00:08)
[2024-10-26] MEDS ORDERED: Oxytocin/0.9 % Sodium Chloride 30 UNIT/500 ML BAG IV SCH (00:15)
[2024-10-26] MEDS ORDERED: Lactated Ringers 1,000 ML IV SCH (00:15)
[2024-10-26] MEDS ORDERED: Tranexamic Acid 1,000 MG/10 ML Vial ONE (00:23)
[2024-10-26 00:24] LABS: HEMATOCRIT 39.9 % (37.0-47.0); HEMOGLOBIN 13.5 g/dL (12.0-16.0); IMMATURE GRAN ABSOLUTE AUTO 0.04 K/uL (0.00-0.05); IMMATURE GRAN PERCENT AUTO 0.4 % (0.0-0.4); MEAN CORPUSCULAR HEMOGLOBIN 28.7 pg (28.0-32.0); MEAN CORPUSCULAR HGB CONC 33.8 g/dL (32.0-36.0); MEAN CORPUSCULAR VOLUME 84.7 fL (83.0-99.0); MEAN PLATELET VOLUME 11.7 fL (9.4-12.3); PLATELET COUNT,PLT 158 K/uL (150-400); RED BLOOD CELL COUNT 4.71 M/uL (4.10-5.30); WHITE BLOOD CELL COUNT,WBC 10.86 K/uL (3.9-11.3)
[2024-10-26] MEDS ORDERED: Calcium Chloride 10% 1 GM/10 ML Syringe ONE (00:24)
[2024-10-26] MEDS ORDERED: HYDROmorphone 1 MG/ML Syringe IVPUSH PRN (00:31)
[2024-10-26] MEDS ORDERED: Albuterol 0.083% 2.5 MG/3 ML Neb Soln NEB PRN (00:31)
[2024-10-26] MEDS ORDERED: Nalbuphine 10 MG/1 ML Vial IVPUSH PRN (00:31)
[2024-10-26] MEDS ORDERED: fentaNYL 100 MCG/2 ML SDV IVPUSH PRN (00:31)
[2024-10-26] MEDS ORDERED: fentaNYL 50 MCG/ML SDV IVPUSH PRN (00:31)
[2024-10-26] MEDS ORDERED: Metoclopramide 10 MG/2 ML SDV IVPUSH PRN (00:31)
[2024-10-26] MEDS ORDERED: diphenhydrAMINE 50 MG/ML SDV IVPUSH PRN (00:31)
[2024-10-26] MEDS ORDERED: Naloxone 0.4 MG/ML SDV IVPUSH PRN (00:31)
[2024-10-26] MEDS ORDERED: Ondansetron 4 MG/2 ML SDV IVPUSH PRN ×2 (00:31)
[2024-10-26] MEDS ORDERED: Phenylephrine HCl In 0.9% NaCl 1 MG/10 ML Syringe IVPUSH PRN (00:31)
[2024-10-26] MEDS ORDERED: Morphine 2 MG/ML SYRINGE IVPUSH PRN (00:31)
[2024-10-26] MEDS ORDERED: Metoclopramide 10 MG/2 ML SDV ONE (00:39)
[2024-10-26] MEDS ORDERED: Ondansetron 4 MG/2 ML SDV ONE (00:40)
[2024-10-26] MEDS ORDERED: Benzocaine/Menthol 20%-0.5% Spray 78 GM Cannister TOP PRN (07:12)
[2024-10-26] MEDS ORDERED: Witch Hazel Medicated Pads 40/Jar TOP PRN (07:12)
[2024-10-26] MEDS ORDERED: Misoprostol 200 MCG Tab RECTAL PRN (07:12)
[2024-10-26] MEDS ORDERED: Lanolin 100% Cream 7 GM Tube TOP PRN (07:12)
[2024-10-26] MEDS ORDERED: Methylergonovine 0.2 MG/1 ML Amp IM PRN (07:12)
[2024-10-26] MEDS: Prenatal Multivitamin with Calcium/Folic Acid/Iron Tab PO SCH (07:43)
[2024-10-26] MEDS: Ferrous Sulfate 325 MG Tab PO SCH (07:43)
[2024-10-26] MEDS: Acetaminophen 500 MG Tab PO PRN (07:43)
[2024-10-26] MEDS: Acetaminophen/oxyCODONE 325-5 MG Tab PO PRN (12:13)
[2024-10-26] MEDS: Ibuprofen 800 MG Tab PO PRN (14:51)
[2024-10-26 21:42] LABS: PH,UMBILICAL ARTERIAL 7.295 (7.18-7.38)
[2024-10-26 21:43] LABS: PH,UMBILICAL VENOUS 7.355 (7.25-7.45)
[2024-10-27 05:42] LABS: HEMATOCRIT 29.5 % (37.0-47.0); MEAN CORPUSCULAR HEMOGLOBIN 29.3 pg (28.0-32.0); MEAN CORPUSCULAR HGB CONC 33.9 g/dL (32.0-36.0); MEAN CORPUSCULAR VOLUME 86.5 fL (83.0-99.0); MEAN PLATELET VOLUME 11.5 fL (9.4-12.3); PLATELET COUNT,PLT 154 K/uL (150-400); RED BLOOD CELL COUNT 3.41 M/uL (4.10-5.30); WHITE BLOOD CELL COUNT,WBC 14.73 K/uL (3.9-11.3)
[2024-10-27] MEDS: Docusate Sodium 100 MG Cap PO PRN (12:16)
== END 2024-10-28 17:38 | disposition home or self-care (01) | DRG 540 ==
LOC: MW.OBCHECK 23:18 → MW.OB 23:18 → MW.OBCHECK 10-26 00:08 → OBSVTOIN 10-26 00:19 → MW.OB 10-26 05:16
PROVIDERS: ADMIT Obstetrics & Gynecology; ATTEND Obstetrics & Gynecology
PROC: 10D00Z1 Extraction of Products of Conception, Low, Open Approach (ICD-10-PCS; principal; 2024-10-26)
PROC: 4A1HXCZ Monitoring of Products of Conception, Cardiac Rate, External Approach (ICD-10-PCS; 2024-10-26)
DX: O34.211 Maternal care for low transverse scar from previous cesarean delivery (principal); Z3A.37 37 weeks gestation of pregnancy; Z37.0 Single live birth; O90.81 Anemia of the puerperium
CPT/HCPCS: 01961; 36415; 59025; 59514; 64999; 82803; 85027; 86592; 86850; 86900; 86901; A9270-GY; J0690; J1100; J1790; J2274; J2371; J2405; J2590; J2765; J2795; J3010; J3490